=== PATIENT | male | born 1940 | race Caucasian/White ===

== ENCOUNTER 2025-06-01 09:19 | Emergency (ER) | payer SELFPAY ==
[2025-06-01 09:23] VITALS: BMI 35.6
--- NOTE | 2025-06-01 09:25 | XRR_ITS ---
PROCEDURE INFORMATION: Exam: XR Chest Exam date and time: 06/01/2025 9:36 AM Age: 84 years old Clinical indication: Cough and dyspnea; Additional info: Dyspnea/cough TECHNIQUE: Imaging protocol: Radiologic exam of the chest. Views: 1 view. COMPARISON: No relevant prior studies available. FINDINGS: Lungs: Retrocardiac reticular opacities that might represent atelectasis versus infiltrates. Pleural spaces: Unremarkable. No pleural effusion. No pneumothorax. Heart/Mediastinum: Unremarkable. No cardiomegaly. Vasculature: There are aortic arch calcifications. There is unfolding of the thoracic aorta. Bones/joints: Left rotator cuff repair. XR/XR chest 1V portable [id number] IMPRESSION: Retrocardiac reticular opacities that might represent atelectasis versus infiltrates.
--- NOTE | 2025-06-01 09:25 | CTR_ITS ---
PROCEDURE INFORMATION: Exam: CT Head Without Contrast Exam date and time: 06/01/2025 9:51 AM Age: 84 years old Clinical indication: Altered mental status/memory loss TECHNIQUE: Imaging protocol: Computed tomography of the head without contrast. Radiation optimization: All CT scans at this facility use at least one of these dose optimization techniques: automated exposure control; mA and/or kV adjustment per patient size (includes targeted exams where dose is matched to clinical indication); or iterative reconstruction. COMPARISON: No relevant prior studies available. RADIATION DOSE METRICS: Total DLP (mGy-cm): 1136.38 FINDINGS: Brain: Age related diffuse parenchymal volume loss. There are bilateral periventricular white matter and centrum semiovale hypodensities, consistent with chronic ischemic small vessel disease. Mineralization of bilateral basal ganglia, age-related. No recent infarct, intracranial bleed or mass effect. Cerebral ventricles: Ex vacuo dilatation of the ventricles. Paranasal sinuses: Visualized sinuses are unremarkable. No fluid levels. Mastoid air cells: Visualized mastoid air cells are well aerated. Orbital cavities: Post bilateral cataract surgery. Bones: Metallic hardware in the left lateral orbital rim, likely postop. Soft tissues: Unremarkable. CT/CT head wo con* [id number] IMPRESSION: No large territorial infarct or intracranial bleed.
--- NOTE | 2025-06-01 09:29 | ECG_ITS ---
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
[2025-06-01 09:32] VITALS: BP 116/59; PULSE 66; TEMP 36.5; O2SAT 95
--- NOTE | 2025-06-01 09:33 | W.ED.SYNCOPE ---
HPI - Syncope General: Chief Complaint: Syncope Stated Complaint: syncope Time Seen by Provider: 06/01/25 09:25 History of Present Illness: 84-year-old male presents to the emergency room with complaint of syncope. Patient has had this several times before is never been evaluated he had a twice this morning first he was sitting at home and took his medicines stood [facility] from the [facility] got lightheaded dizzy and passed out he was out for couple minutes he went to a gun show here in town where he had gotten up from standing walked away his went back sat down to where he had started from having passed out for about 2 to 3 minutes never had any chest pain denies striking his head no loss consciousness he is on Eliquis has a history of atrial fibrillation. He has no chest pain or abdominal pain or shortness of breath at this time. No known history of valvular disease in the past no stroke she has no focal neurologic deficits at this time. Associated symptoms: Deny abdominal pain, chest pain or fever(s) Related Data Home Medications ?Medication ?Instructions ?Recorded ?Confirmed apixaban 5 mg tablet (Eliquis) 5 mg PO BID 06/01/25 06/01/25 dapagliflozin propanediol 5 mg 5 mg PO DAILY 06/01/25 06/01/25 tablet (Farxiga) diltiazem HCl 240 mg 240 mg PO DAILY 06/01/25 06/01/25 capsule,extended release 24 hr, controlled (DILT-XR) duloxetine 30 mg capsule,delayed 30 mg PO DAILY 06/01/25 06/01/25 release fenofibrate nanocrystallized 145 145 mg PO DAILY 06/01/25 06/01/25 mg tablet furosemide 80 mg tablet 80 mg PO DAILY 06/01/25 06/01/25 gabapentin 300 mg capsule See Rx Instructions .Route .COMPLEX 06/01/25 06/01/25 methocarbamol 500 mg tablet 500 mg PO TID PRN muscle spasms 06/01/25 06/01/25 metoprolol succinate 25 mg 25 mg PO BID 06/01/25 06/01/25 tablet,extended release 24 hr omeprazole 20 mg capsule,delayed 20 mg PO DAILY 06/01/25 06/01/25 release ondansetron HCl 4 mg tablet 4 mg PO Q8H PRN Nausea 06/01/25 06/01/25 potassium chloride 20 mEq 20 meq PO DAILY 06/01/25 06/01/25 tablet,extended release sacubitril 49 mg-valsartan 51 mg 1 tab PO BID 06/01/25 06/01/25 tablet (Entresto) terazosin 5 mg capsule 5 mg PO QPM 06/01/25 06/01/25 tiotropium 2.5 mcg-olodaterol 2.5 2 puff inhalation DAILY 06/01/25 06/01/25 mcg/actuation mist for inhalation (Stiolto Respimat) tizanidine 4 mg tablet 2 mg PO QPM 06/01/25 06/01/25 tramadol 50 mg tablet 50 mg PO Q8H PRN Pain 06/01/25 06/01/25 Allergies Allergy/AdvReac Type Severity Reaction Status Date / Time aspirin Allergy Unknown Verified 06/01/25 11:38 Calcium Channel Blocking Allergy Unknown Verified 06/01/25 11:38 Agents-Dih ceftazidime Allergy Unknown Verified 06/01/25 11:38 Cephalosporins Allergy Unknown Verified 06/01/25 11:38 salicylates Allergy Unknown Verified 06/01/25 11:38 Review of Systems Const: Denies: fever(s) or chills Card: Denies: chest pain Resp: Denies: dyspnea GI: Denies: abdominal pain : Denies: dysuria, urinary frequency or urinary urgency Musc: Denies: neck pain or back pain Skin/Breast: Denies: rash Physical Exam Const: COMMON NORMALS: no acute distress GENERAL APPEARANCE: cooperative and comfortable ORIENTATION/CONSCIOUSNESS: Yes awake, Yes oriented to person, Yes oriented to place and Yes oriented to time HENMT: COMMON NORMALS: normocephalic, atraumatic and hearing grossly normal bilaterally HEAD & SCALP: normocephalic and atraumatic Resp: COMMON NORMALS: normal respiratory effort, No retractions, No use of accessory muscles and clear to auscultation bilaterally AUSCULTATION: clear to auscultation bilaterally Cardio: COMMON NORMALS: regular rate, regular rhythm and No murmurs present (Cardio) RATE: regular rate RHYTHM: regular rhythm GI: COMMON NORMALS: Soft to palpation and No hepatosplenomegaly present AUSCULTATION: Yes normoactive bowel sounds PALPATION: Yes Soft to palpation, No Tenderness to palpation present (GI), No Guarding due to palpation present (GI) and Yes No hepatosplenomegaly present Extremity: COMMON NORMALS: normal to inspection, capillary refill normal, no clubbing, cyanosis or edema, no calf tenderness and no pedal edema Neuro: SENSORIUM/ORIENTATION: Yes oriented to person, Yes oriented to place and Yes oriented to time Skin: COMMON NORMALS: no rashes or lesions noted GENERAL SKIN EXAM: no rashes or lesions noted Course Vital Signs: Vital signs: Vital Signs Temperature 97.7 F 06/01/25 09:32 Pulse Rate 65 06/01/25 12:59 Blood Pressure 127/72 06/01/25 12:59 Pulse Oximetry 93 06/01/25 12:59 Oxygen Delivery Me thod Room Air 06/01/25 12:21 MDM - Syncope Medical Decision Making Positive orthostatics patient feels much better after fluids. According to medicines he is taking both furosemide and Lasix will stop the furosemide. Have him follow-up with his primary care doctor within a week reviewed labs and imaging with the patient no acute findings otherwise noted. Creatinine is slightly elevated this should be rechecked when he follows up with his doctor. However his potassium is normal BUN is also normal suspect this is chronic. Lab Data I reviewed the patient's lab results. 06/01/25 09:27 06/01/25 09:27 Radiology Impressions Chest X-Ray 06/01/25 09:25 IMPRESSION: Retrocardiac reticular opacities that might represent atelectasis versus infiltrates. Head CT 06/01/25 09:25 IMPRESSION: No large territorial infarct or intracranial bleed. Laboratory Results WBC 7.56 10^3/uL (3.29-11.43) 06/01/25 09: RBC 4.64 10^6/uL (3.85-5.65) 06/01/25 09:27 Hgb 14.20 g/dL (11.27-16.99) 06/01/25 09: Hct 43.1 % (37-53) 06/01/25 09: MCV 92.9 fl (82-101) 06/01/25 09:27 MCH 30.6 pg (27-33) 06/01/25 09: MCHC 32.9 g/dL (30-55) 06/01/25 09: RDW 13.5 % (12.1-15.1) 06/01/25 09: Plt Count 375 10^3/cmm (157-399) 06/01/25 09: MPV 9.2 fL (7.4-10.4) 06/01/25 09: Neut % (Auto) 75.1 % 06/01/25 09: Lymph % (Auto) 17.2 % 06/01/25 09: Rush % (Auto) 5.3 % 06/01/25 09: Eos % (Auto) 1.5 % 06/01/25 09:27 Baso % (Auto) 0.5 % 06/01/25 09: Neut # (Auto) 5.68 10^3/uL (1.8-7.7) 06/01/25 09: Lymph # (Auto) 1.3 10^3/uL (0.8-4.8) 06/01/25 09: Rush # (Auto) 0.4 10^3/uL (0.2-0.9) 06/01/25 09: Eos # (Auto) 0.1 10^3/uL (0.0-0.8) 06/01/25 09: Baso # (Auto) 0.0 10^3/uL (0.0-0.1) 06/01/25 09: Nucleated RBC % (auto) 0 % 06/01/25 09: Nucleated RBCs # 0.0 /100WBC 06/01/25 09: Sodium 139 mmol/L (136-145) 06/01/25 09: Potassium 3.9 mmol/L (3.5-5.1) 06/01/25 09: Chloride 102 mmol/L (98-107) 06/01/25 09: Carbon Dioxide 23 mmol/L (22-29) 06/01/25 09: Anion Gap 17.9 (5-19) 06/01/25 09: BUN 22 mg/dL (8-23) 06/01/25 09: Creatinine 1.7 mg/dL (0.7-1.2) H 06/01/25 09:27 GFR Calculation Not Reportable 06/01/25 09: Glucose 99 mg/dL (65-115) 06/01/25 09:27 Calculated Osmolality 291 mOsm/kg (285-295) 06/01/25 09: Calcium 9.3 mg/dL (8.5-10.5) 06/01/25 09: Magnesium 2.2 mg/dL (1.7-2.3) 06/01/25 09: Total Bilirubin 0.4 mg/dL (0.15-1.2) 06/01/25 09: AST 19 U/L (0-40) 06/01/25 09: ALT 8 U/L (0-41) 06/01/25 09: Alkaline Phosphatase 78 U/L (40-130) 06/01/25 09: Creatine Kinase 55 U/L (39-308) 06/01/25 09: Troponin T Baseline 19 ng/L (0-15) H 06/01/25 09: Troponin T 120 Minute 15.47 ng/L (0-15) H 06/01/25 11:38 Delta Troponin T -3.53 ABS# (0-10) L 06/01/25 11:38 Total Protein 7.3 g/dL (6.6-8.7) 06/01/25 09: Albumin 3.5 g/dL (3.5-5.2) 06/01/25 09: Globulin 3.8 g/dL (1.3-4.6) 06/01/25 09: Lipase 20 U/L (13-60) 06/01/25 09:27 Urine Color Yellow (Yellow) 06/01/25 11:33 Urine Appearance Clear (CLEAR) 06/01/25 11:33 Urine pH 6.5 (5-7) 06/01/25 11:33 Ur Specific Harrison 1.021 (1.005-1.030) 06/01/25 11:33 Urine Protein 1+ (Negative) A 06/01/25 11:33 Urine Glucose (UA) 2+ (Normal) H 06/01/25 11:33 Urine Ketones Negative (Negative) 06/01/25 11:33 Urine Blood Negative (Negative) 06/01/25 11:33 Urine Nitrate Negative (Negative) 06/01/25 11:33 Urine Bilirubin Negative (Negative) 06/01/25 11:33 Urine Urobilinogen 1.0 mg/dL (Negative) 06/01/25 11:33 Ur Leukocyte Esterase Negative (Negative) 06/01/25 11:33 Urine RBC 0-2 /hpf (0-2) 06/01/25 11:33 Urine WBC 0-5 /hpf (0-5) 06/01/25 11:33 Ur Squamous Epith Cells 0-5 /hpf (0-5) 06/01/25 11:33 Amorphous Sediment Not Reportable 06/01/25 11:33 Urine Bacteria None seen /hpf (NONE) 06/01/25 11:33 Hyaline Casts 22.33 /lpf 06/01/25 11:33 Fine Granular Casts 0-4 /lpf H 06/01/25 11:33 Influenza A (PCR) Negative (Negative) 06/01/25 10:27 Influenza Type B (PCR) Negative (Negative) 06/01/25 10:27 RSV (PCR) Negative (Negative) 06/01/25 10:27 SARS-CoV-2 (PCR) Negative (Negative) 06/01/25 10:27 All radiology interpretation(s) finalized by discharge Discharge Plan Discharge Patient Disposition: Home Clinical Impression: Syncope due to orthostatic hypotension Condition: Stable Prescriptions: Discontinued torsemide 20 mg tablet 20 mg PO DAILY No Action terazosin 5 mg capsule 5 mg PO QPM methocarbamol 500 mg tablet 500 mg PO TID PRN (Reason: muscle spasms) diltiazem HCl [DILT-XR] 240 mg capsule,ext.rel 24h degradable 240 mg PO DAILY tizanidine 4 mg tablet 2 mg PO QPM ondansetron HCl 4 mg tablet 4 mg PO Q8H PRN (Reason: Nausea) tramadol 50 mg tablet 50 mg PO Q8H PRN (Reason: Pain) furosemide 80 mg tablet 80 mg PO DAILY gabapentin 300 mg capsule See Rx Instructions .ROUTE .COMPLEX Rx Instructions: Take 2 capsules by mouth in the morning and 1 capsules in the evening. omeprazole 20 mg capsule,delayed release(DR/EC) 20 mg PO DAILY metoprolol succinate 25 mg tablet extended release 24 hr 25 mg PO BID duloxetine 30 mg capsule,delayed release(DR/EC) 30 mg PO DAILY fenofibrate nanocrystallized 145 mg tablet 145 mg PO DAILY Eliquis 5 mg tablet 5 mg PO BID dapagliflozin propanediol [Farxiga] 5 mg tablet 5 mg PO DAILY potassium chloride 20 mEq tablet extended release 20 meq PO DAILY Stiolto Respimat 2.5-2.5 mcg/actuation mist 2 puff INHALATION DAILY Entresto 49-51 mg tablet 1 tab PO BID Discharge Orders: Discharge ED (Routine); Ordered 06/01/25 Ordered By: Oj Beckford Discharge Diet: Usual diet Discharge Activity: Resume usual activity Patient Instructions: Opioid Safety, Pain Management, Patient Portal & Martha Instructions Activity Restrictions/Additional Instructions: [facility] It is very important that you follow up as instructed or that you return to the Emergency Department should you have concerns or if your condition changes or worsens in any way. You were seen in the emergency room after an episode of passing out this is due to your blood pressure dropping with change in posture. You should stop the furosemide and only take the furosemide as it diuretic. Follow-up with your primary care doctor within the next week Print Language: Arabic Coding Level of Care Code ED [employer] Teacher for Kervin Cheyr
[2025-06-01 09:41] LABS: Hematocrit 43.1 % (37-53); Hemoglobin 14.20 g/dL (11.27-16.99); Mean Corpuscular HGB Conc 32.9 g/dL (30-55); Mean Corpuscular Hemoglobin 30.6 pg (27-33); Mean Corpuscular Volume 92.9 fl (82-101); Nucleated Red Blood Cells % 0 %; Platelet Count 375 10^3/cmm (157-399); Red Blood Count 4.64 10^6/uL (3.85-5.65); White Blood Count 7.56 10^3/uL (3.29-11.43)
[2025-06-01 09:54] LABS: Troponin(5th) Baseline 19 ng/L (0-15)
[2025-06-01 09:57] LABS: Alanine Aminotransferase 8 U/L (0-41); Albumin Level 3.5 g/dL (3.5-5.2); Alkaline Phosphatase 78 U/L (40-130); Anion Gap 17.9 (5-19); Aspartate Amino Transferase 19 U/L (0-40); Blood Urea Nitrogen 22 mg/dL (8-23); Calcium 9.3 mg/dL (8.5-10.5); Carbon Dioxide 23 mmol/L (22-29); Chloride 102 mmol/L (98-107); Creatinine Clr Calc Pharmacy 45.1380; Globulin 3.8 g/dL (1.3-4.6); Glucose 99 mg/dL (65-115); Lipase 20 U/L (13-60); Magnesium 2.2 mg/dL (1.7-2.3); Osmolality Calculated 291 mOsm/kg (285-295); Potassium 3.9 mmol/L (3.5-5.1); Sodium 139 mmol/L (136-145); Total Protein 7.3 g/dL (6.6-8.7)
--- NOTE | 2025-06-01 11:22 | ECG_ITS ---
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
[2025-06-01 11:25] LABS: Respiratory Syncytial Virus Ce NEGATIVE (Negative); SARS-CoV-2 PCR NEGATIVE (Negative)
[2025-06-01 11:28] VITALS: BP 108/66; PULSE 79; O2SAT 91
--- NOTE | 2025-06-01 11:38 | PC.PHAR ---
Allergies provided by [facility] [address], [place]. Pt also uses [facility].
[2025-06-01 11:40] VITALS: BP 102/53; BP 108/66; BP 127/76; PULSE 71; PULSE 78; PULSE 81
[2025-06-01 11:46] LABS: Glucose Urine UA 2+ (Normal); Nitrate Urine Negative (Negative); Specific Gravity, Urine 1.021 (1.005-1.030)
[2025-06-01 11:49] LABS: Add Urine Microscopic? YES
[2025-06-01 12:07] LABS: Troponin 5 2HR 15.47 ng/L (0-15)
[2025-06-01 12:10] LABS: Troponin 5 2HR Delta -3.53 ABS# (0-10)
[2025-06-01 12:11] LABS: UA Slide Review UA Slide Review Perf
[2025-06-01 12:21] VITALS: BP 121/71; PULSE 65; O2SAT 100
[2025-06-01 12:59] VITALS: BP 127/72; PULSE 65; O2SAT 93
== END 2025-06-01 13:02 | disposition home or self-care (01) ==
PROVIDERS: Emergency Provider Family Medicine
DX: I95.1 Orthostatic hypotension (principal); Z11.52 Encounter for screening for COVID-19; Z79.01 Long term (current) use of anticoagulants
CPT/HCPCS: 36415; 70450; 71045; 80053; 81001; 82550; 83690; 83735; 84484; 85025; 87637; 93005; 99285; J7030